=== PATIENT | female | born 1990 | race Two or more races ===

== ENCOUNTER 2017-05-13 08:58 | Inpatient (IN) | payer MEDICAID ==
[~2017-05-13] VITALS: Ht 162.6 cm; Wt 49.9 kg
[2017-05-13] MEDS ORDERED: SODIUM CHLORIDE 0.9% 1,000 ML IV ONE (09:44)
[2017-05-13] MEDS ORDERED: ONDANSETRON HCL 4MG/2ML VIAL IV STA (09:44)
[2017-05-13 09:48] LABS: CLARITY URINE CLEAR (CLEAR); COLOR URINE YELLOW (YELLOW); GLUCOSE URINE NEGATIVE (NEGATIVE); KETONES URINE NEGATIVE (NEGATIVE); LEUKOCYTE ESTERASE URINE NEGATIVE (NEGATIVE); NITRITE URINE NEGATIVE (NEGATIVE); OCCULT BLOOD URINE 2+ (NEGATIVE); PH URINE >=9.0 (4.5-8.0); PROTEIN URINE TRACE (NEGATIVE); SPECIFIC GRAVITY URINE 1.023 (1.005-1.030); UROBILINOGEN URINE 0.2 E.U./dL (0.2-1.0)
[2017-05-13 10:04] LABS: HEMATOCRIT. 22.8 % (36.0-48.0); MEAN CORPUSCULAR VOLUME 60.7 fL (81.0-99.0); MEAN PLATELET VOLUME 8.8 fl (7.4-10.4); PLATELET 137 x1000/uL (130-400); RED BLOOD CELL COUNT 3.76 mill/uL (4.2-5.4); RED CELL DISTRIBUTION WIDTH 21.2 % (11.6-14.6)
[2017-05-13 10:10] LABS: CHLORIDE 108 mEq/L (98-107)
[2017-05-13 10:12] LABS: INR 1.1
[2017-05-13 10:16] LABS: HCG SCREEN NEGATIVE
[2017-05-13 10:19] LABS: CARBON DIOXIDE 21 mEq/L (21-32)
[2017-05-13 10:47] LABS: HEMOGLOBIN. 6.8 g/dL (12.0-16.0)
[2017-05-13 11:40] LABS: PLATELET ESTIMATE NORMAL
[2017-05-13 12:59] LABS: HEMATOCRIT 21.2 % (36.0-48.0)
[2017-05-13 13:08] LABS: HEMOGLOBIN 6.1 g/dL (12.0-16.0)
[2017-05-13] MEDS ORDERED: PANTOPRAZOLE SODIUM 40 MG/VIAL IV SCH (13:15)
[2017-05-13 17:15] LABS: TOTAL IRON BINDING CAPACITY 540 ug/dL (250-450)
[2017-05-13 17:33] VITALS: BP 100/66
[2017-05-13 17:47] LABS: FERRITIN < 5 ng/mL (10-291)
[2017-05-13 19:02] VITALS: BP 103/51
[2017-05-13] MEDS ORDERED: ACETAMINOPHEN 325MG TABLET PO PRN (19:15)
[2017-05-13 19:17] VITALS: BP 103/54
[2017-05-13 20:00] VITALS: BP 109/46
[2017-05-13 20:30] VITALS: BP 120/47
[2017-05-13 23:21] VITALS: BP 100/41
[2017-05-14] VITALS (9 sets, daily range): BP systolic 100–120; BP diastolic 41–73
[2017-05-14 00:47] LABS: VITAMIN B12 SERUM 242 pg/mL (211-911)
[2017-05-14 06:59] LABS: INR 1.1; PROTHROMBIN TIME 11.2 sec (9.4-11.6)
[2017-05-14 07:22] LABS: HEMOGLOBIN 9.3 g/dL (12.0-16.0)
[2017-05-14] MEDS ORDERED: SENNOSIDES/DOCUSATE SOD 8.6/50MG TABLET PO SCH (10:15)
[2017-05-14] MEDS ORDERED: IRON SUCROSE COMPLEX 100 MG/5 ML ML IV NR (10:30)
[2017-05-15] MEDS ORDERED: IRON SUCROSE COMPLEX 100 MG/5 ML ML IV SCH (09:00)
== END 2017-05-14 16:55 | disposition home or self-care (01) | DRG 532 ==
LOC: ER 09:04 → 6WST 11:53 → EDBEDREQ 11:57 → ENRESERV 12:25
PROVIDERS: ADMIT Internal Medicine; ATTEND Internal Medicine
PROC: 30233N1 Transfusion of Nonautologous Red Blood Cells into Peripheral Vein, Percutaneous Approach (ICD-10-PCS; principal; 2017-05-13)
DX: N83.201 Unspecified ovarian cyst, right side (principal); D62 Acute posthemorrhagic anemia; N92.0 Excessive and frequent menstruation with regular cycle; Z91.19 Patient's noncompliance with other medical treatment and regimen; Z88.6 Allergy status to analgesic agent; Z98.891 History of uterine scar from previous surgery; D50.9 Iron deficiency anemia, unspecified
CPT/HCPCS: 36415; 74177; 80053; 81001; 82607; 82728; 82746; 83540; 83550; 83690; 84703; 85014; 85018; 85025; 85049; 85384; 85610; 86850; 86900; 86920; 93005; 96361; 96374; 96375; 99291; C9113; J2405; J7030; J7040; P9016

== ENCOUNTER 2019-02-11 14:00 | Emergency (ER) | payer MEDICAID, OTHER ==
[~2019-02-11] VITALS: Ht 165.1 cm; Wt 57.0 kg
[2019-02-11 17:40] LABS: CHLORIDE 106 mEq/L (98-107); HEMOGLOBIN. 7.7 g/dL (12.0-16.0); MEAN CORPUSCULAR HEMOGLOBIN 19.6 pg (28.0-32.0); MEAN CORPUSCULAR VOLUME 65.8 fL (81.0-99.0); MEAN PLATELET VOLUME 10.8 fl (7.4-10.4); PLATELET 246 x1000/uL (130-400); RED BLOOD CELL COUNT 3.96 mill/uL (4.2-5.4); RED CELL DISTRIBUTION WIDTH 21.5 % (11.6-14.6)
[2019-02-11 17:47] LABS: TOTAL IRON BINDING CAPACITY 550 ug/dL (250-450)
[2019-02-11 18:05] LABS: PLATELET ESTIMATE NORMAL
[2019-02-11 19:09] VITALS: BP 127/59
== END 2019-02-11 19:14 | disposition home or self-care (01) ==
LOC: ER 14:00
DX: D64.9 Anemia, unspecified (principal)
CPT/HCPCS: 36415; 81025; 83540; 83550; 86850; 86900; 99283

== ENCOUNTER 2019-04-28 18:58 | Emergency (ER) | payer MEDICAID, OTHER ==
[~2019-04-28] VITALS: Ht 162.6 cm; Wt 53.0 kg
[2019-04-28 19:35] VITALS: BP 110/58
== END 2019-04-28 22:40 | disposition left against medical advice (07) ==
LOC: ER 18:58
DX: Z53.21 Procedure and treatment not carried out due to patient leaving prior to being seen by health care provider (principal); Z88.6 Allergy status to analgesic agent